=== PATIENT | male | born 1985 | race American Indian/Alaskan Native ===

== ENCOUNTER 2021-11-07 22:50 | Emergency (ER) | payer MEDICAID ==
[2021-11-07 23:09] VITALS: BP 155/90; PULSE 149
== END 2021-11-08 00:54 | disposition left against medical advice (07) ==
LOC: JP.ED 22:50
DX: S02.2XXA Fracture of nasal bones, initial encounter for closed fracture (principal); J34.2 Deviated nasal septum; F17.210 Nicotine dependence, cigarettes, uncomplicated; Y04.0XXA Assault by unarmed brawl or fight, initial encounter
CPT/HCPCS: 70486; 99282; 99284-25